=== PATIENT | female | born 1965 | race American Indian/Alaskan Native ===

== ENCOUNTER 2019-09-15 14:20 | Emergency (ER) | payer SELFPAY ==
[2019-09-15] MEDS ORDERED: ASPIRIN 325 MG TAB PO ONE (14:26)
--- NOTE | 2019-09-15 14:55 | XRay Report ---
CHEST 2 VIEWS INDICATION / CLINICAL INFORMATION: Chest Pain. COMPARISON: None available. FINDINGS: SUPPORT DEVICES: None. HEART / MEDIASTINUM: No significant abnormality. LUNGS / PLEURA: No significant pulmonary or pleural abnormality. No pneumothorax. ADDITIONAL FINDINGS: No significant additional findings. IMPRESSION: 1. No acute findings. Signer Name: Ousmane Burr MD Signed: 09/15/2019 2:51 PM Workstation Name: [id number]
--- NOTE | 2019-09-15 15:50 | Event Note ---
ED Screening Note ED Screening Note: pt presents with CP across the chest that began this morning states she has been diagnosed with costochrondritis no vomting, no diarrhea states she has a dry cough PMHx seizures, migraines, PTSD, depression, bipolar allergy: cortisporin ear drops went through menopause This initial assessment/diagnostic orders/clinical plan/treatment(s) is/are subject to change based on patients health status, clinical progression and re- assessment by fellow clinical providers in the ED. Further treatment and workup at subsequent clinical providers discretion. Patient/guardian urged not to elope from the ED as their condition may be serious if not clinically assessed and managed. Initial orders include: CP protocol
[2019-09-15 15:53] VITALS: BP 116/80
[2019-09-15 16:21] LABS: Basophils # (Auto) 0.1 K/mm3 (0.0-0.1); Basophils % (Auto) 0.7 % (0.0-1.8); Eosinophils # (Auto) 0.2 K/mm3 (0.0-0.4); Eosinophils % (Auto) 2.2 % (0.0-4.3); Hematocrit 41.1 % (30.3-42.9); Hemoglobin 13.5 gm/dl (10.1-14.3); Lymphocytes # (Auto) 3.7 K/mm3 (1.2-5.4); Lymphocytes % (Auto) 42.4 % (13.4-35.0); Mean Corpuscular HGB Conc 33 % (30-34); Mean Corpuscular Volume 83 fl (79-97); Monocytes # (Auto) 0.7 K/mm3 (0.0-0.8); Monocytes % (Auto) 7.7 % (0.0-7.3); Platelet Count 220 K/mm3 (140-440); Red Blood Count 4.95 M/mm3 (3.65-5.03); Red Cell Distribution Width 13.7 % (13.2-15.2)
[2019-09-15 16:40] LABS: BUN/Creatinine Ratio 20; Blood Urea Nitrogen 12 mg/dL (7-17); Calcium 9.7 mg/dL (8.4-10.2); Hemolysis Index 7
--- NOTE | 2019-09-15 17:54 | Emergency Department Report ---
ED Chest Pain HPI - General Chief Complaint: Chest Pain Stated Complaint: CHEST PAIN Time Seen by Provider: 09/15/19 15:47 Source: patient, family Mode of arrival: Ambulatory Limitations: No Limitations - History of Present Illness Initial Comments: This pleasant 54-year-old female presents to emergency department with a chief complaint of chest pain 1 day. Patient reports pain in the entire torso including her back. She denies any radiating pain. She reports past medical history of heart attack and stroke. Patient denies any associated fever, chills, night sweats, headache, does complain vision, nausea, vomiting, shortness of breath, exertional symptoms or any associated symptoms. Pain is a 4 of 10 and aggravated by movement. Alleviating factors include immobility. She denies any history of thromboembolic disease. MD Complaint: chest pain Severity scale (0 -10): 8 - Related Data Previous Rx's Medication Instructions Recorded Last Taken Type methOCARBAMOL [Robaxin TAB] 500 mg PO Q6H #20 tablet 09/15/19 Unknown Rx traMADoL [Ultram 50 MG tab] 50 mg PO Q6HR PRN #16 tablet 09/15/19 Unknown Rx Allergies Allergy/AdvReac Type Severity Reaction Status Date / Time No Known Allergies Allergy Verified 09/15/19 14:25 Heart Score - HEART Score History: Slightly suspicious EKG: Normal Age: 45-65 Risk factors: 1-2 risk factors Troponin: < normal limit HEART Score: 2 ED Review of Systems ROS: Stated complaint: CHEST PAIN Other details as noted in HPI Comment: All other systems reviewed and negative Constitutional: denies: chills, fever Eyes: denies: eye pain, eye discharge, vision change ENT: denies: ear pain, throat pain Respiratory: denies: cough, shortness of breath, wheezing Cardiovascular: denies: chest pain, palpitations Endocrine: no symptoms reported Gastrointestinal: abdominal pain, nausea, vomiting, diarrhea Genitourinary: denies: urgency, dysuria, discharge Musculoskeletal: denies: back pain, joint swelling, arthralgia Skin: denies: rash, lesions Neurological: denies: headache, weakness, paresthesias Psychiatric: denies: anxiety, depression Hematological/Lymphatic: denies: easy bleeding, easy bruising ED Past Medical Hx - Past Medical History Previous Medical History?: Yes Hx Heart Attack/AMI: Yes - Surgical History Past Surgical History?: No - Social History Smoking Status: Current Every Day Smoker Substance Use Type: None - Medications Home Medications: Home Medications Medication Instructions Recorded Confirmed Last Taken Type methOCARBAMOL [Robaxin TAB] 500 mg PO Q6H #20 tablet 09/15/19 Unknown Rx traMADoL [Ultram 50 MG tab] 50 mg PO Q6HR PRN #16 tablet 09/15/19 Unknown Rx ED Physical Exam - General Limitations: No Limitations General appearance: alert, in no apparent distress - Head Head exam: Present: atraumatic, normocephalic - Eye Eye exam: Present: normal appearance, PERRL, EOMI Pupils: Present: normal accommodation - ENT ENT exam: Present: normal exam, normal orophraynx, mucous membranes moist - Neck Neck exam: Present: normal inspection, full ROM. Absent: tenderness, meningismus - Respiratory Respiratory exam: Present: normal lung sounds bilaterally, chest wall tenderness (tenors to the anterior chest wall). Absent: respiratory distress, wheezes, rales, rhonchi, stridor - Cardiovascular Cardiovascular Exam: Present: regular rate, normal rhythm, normal heart sounds. Absent: systolic murmur, diastolic murmur, rubs, gallop - GI/Abdominal GI/Abdominal exam: Present: soft, normal bowel sounds. Absent: distended, te nderness, guarding, rebound, rigid - Extremities Exam Extremities exam: Present: normal inspection, full ROM. Absent: tenderness, calf tenderness (no posterior calf tenderness, negative Homans sign bilaterally.) - Back Exam Back exam: Present: normal inspection, full ROM. Absent: tenderness, CVA tenderness (R), CVA tenderness (L) - Neurological Exam Neurological exam: Present: alert, oriented X3, normal gait - Psychiatric Psychiatric exam: Present: normal affect, normal mood - Skin Skin exam: Present: warm, dry, intact, normal color. Absent: rash ED Course Vital Signs 09/15/19 15:48 Temperature 98.2 F Pulse Rate 75 Respiratory 18 Rate Blood Pressure 116/80 Blood Pressure 116/80 [Right] O2 Sat by Pulse 99 Oximetry SAM score - Sam Score Age > 65: (0) No Aspirin use within the Past 7 Days: (0) No 3 or more CAD Risk Factors: (0) No 2 or more Angina events in past 24 hrs: (0) No Known CAD with more than 50% Stenosis: (0) No Elevated Cardiac Markers: (0) No ST Deviation Greater than 0.5mm: (0) No SAM Score: 0 ED Medical Decision Making - Lab Data Result diagrams: 09/15/19 15:21 09/15/19 15:21 Lab Results 09/15/19 09/15/19 09/15/19 Range/Units 15:21 15:21 17:41 WBC 8.8 (4.5-11.0) K/mm3 RBC 4.95 (3.65-5.03) M/mm3 Hgb 13.5 (10.1-14.3) gm/dl Hct 41.1 (30.3-42.9) % MCV 83 (79-97) fl MCH 27 L (28-32) pg MCHC 33 (30-34) % RDW 13.7 (13.2-15.2) % Plt Count 220 (140-440) K/mm3 Lymph % (Auto) 42.4 H (13.4-35.0) % [place] % (Auto) 7.7 H (0.0-7.3) % Eos % (Auto) 2.2 (0.0-4.3) % Baso % (Auto) 0.7 (0.0-1.8) % Lymph # 3.7 (1.2-5.4) K/mm3 [place] # 0.7 (0.0-0.8) K/mm3 Eos # 0.2 (0.0-0.4) K/mm3 Baso # 0.1 (0.0-0.1) K/mm3 Seg Neutrophils % 47.0 (40.0-70.0) % Seg Neutrophils # 4.1 (1.8-7.7) K/mm3 Sodium 141 (137-145) mmol/L Potassium 4.2 (3.6-5.0) mmol/L Chloride 103.3 (98-107) mmol/L Carbon Dioxide 27 (22-30) mmol/L Anion Gap 15 mmol/L BUN 12 (7-17) mg/dL Creatinine 0.6 L (0.7-1.2) mg/dL Estimated GFR > 60 ml/min BUN/Creatinine Ratio 20 % Glucose 84 (65-100) mg/dL Calcium 9.7 (8.4-10.2) mg/dL Troponin T < 0.010 < 0.010 (0.00-0.029) ng/mL - EKG Data -: EKG Interpreted by Me EKG shows normal: sinus rhythm Rate: normal - EKG Data When compared to previous EKG there are: previous EKG unavailable 09/15/19 18:26 Normal sinus rhythm with a rate of 69. No acute ST or T-wave about this, no STEMI, normal intervals, normal axis, - Radiology Data Radiology results: report reviewed [address] [place] [id number] XRay Report Signed Patient: ENEDINA DANIELS MR#: [id number] : 1965 Acct:[id number] Age/Sex: 54 / F ADM Date: 09/15/19 Loc: ED Attending Dr: Ordering Physician: KATIE VALENTINE MD Date of Service: 09/15/19 Procedure(s): XR chest routine 2V Accession Number(s): [id number] cc: ED MD MEME Fluoro Time In Minutes: CHEST 2 VIEWS INDICATION / CLINICAL INFORMATION: Chest Pain. COMPARISON: None available. FINDINGS: SUPPORT DEVICES: None. HEART / MEDIASTINUM: No significant abnormality. LUNGS / PLEURA: No significant pulmonary or pleural abnormality. No p neumothorax. ADDITIONAL FINDINGS: No significant additional findings. IMPRESSION: 1. No acute findings. Signer Name: Ousmane Burr MD Signed: 09/15/2019 2:51 PM Workstation Name: [id number] Transcribed By: CRISTAL Dictated By: Ousmane Burr MD Electronically Authenticated By: Ousmane Burr MD Signed Date/Time: 09/15/19 145 DD/ 1450 TD/TT: - Medical Decision Making Patient is nontoxic in no acute distress. Vital signs have remained stable. Patient's EKG was unremarkable with no ischemic changes and 2 cardiac enzymes have been negative. Patient's heart scores relatively low making her a low risk for ACS. Patient has no exertional symptoms. Patient had no widening mediastinum and normal equal bilateral radial pulses making aortic dissection unlikely. She had no tearing or ripping pain to the back. Patient had no pleuritic pain, hemoptysis, recent long travel, recent immobilization or surgery, history of PE or DVT and has a low Wells criteria for PE and DVT making PE unlikely. I did discuss warning d-dimer the patient prior to discharge however she declined stating she had to go home to care for her children. She understood that a PE was not completely ruled out and that if she develops any change or worsening symptoms such as hemoptysis, pleuritic pain, shortness of breath that she needs to return emergently department immediately for proper rule out at this. The patient was also offered admission or observation the hospital and cardiology consultation however she politely declined stating she needed to go home to think is reasonable detour so far negative workup. X-ray was negative for pneumonia or pneumothorax. Patient was given strict return precautions. I will fax over the patient's information to the cardiology clinic for close follow-up and she was instructed to return emergently changing worsening symptoms. - Differential Diagnosis ACS, PE, aortic dissection, pneumonia, pneumothorax Critical care attestation.: If time is entered above; I have spent that time in minutes in the direct care of this critically ill patient, excluding procedure time. ED Disposition Clinical Impression: Nonspecific chest pain Disposition: DC-01 TO HOME OR SELFCARE Is pt being admited?: No Condition: Stable Instructions: Chest Pain (ED) Prescriptions: methOCARBAMOL [Robaxin TAB] 500 mg PO Q6H #20 tablet traMADoL [Ultram 50 MG tab] 50 mg PO Q6HR PRN #16 tablet PRN Reason: Pain Referrals: BERNADINE ROMAN MD [Staff Physician] - 3-5 Days Forms: Work/School Release Form(ED) Time of Disposition: 18:45
== END 2019-09-15 18:55 | disposition home or self-care (01) ==
LOC: ED 14:20
DX: R07.9 Chest pain, unspecified (principal); F17.200 Nicotine dependence, unspecified, uncomplicated; F12.10 Cannabis abuse, uncomplicated
CPT/HCPCS: 36415; 71046; 80048; 84484; 85025; 93005; 93010; 99284

== ENCOUNTER 2020-01-29 14:14 | Emergency (ER) | payer MEDICARE, MEDICAID ==
[2020-01-29] MEDS ORDERED: CYCLOBENZAPRINE 10 MG TAB PO ONE (17:07)
[2020-01-29] MEDS ORDERED: ACETAMINOPHEN W/CODEINE 300-30 MG TAB PO ONE (17:07)
[2020-01-29] MEDS ORDERED: KETOROLAC 60 MG/2 ML INJ IM ONE (17:07)
--- NOTE | 2020-01-29 17:08 | Emergency Department Report ---
ED Back Pain/Injury HPI - General Chief Complaint: Back Pain/Injury Stated Complaint: RIGHT LEG PAIN Time Seen by Provider: 01/29/20 16:50 Source: patient Limitations: No Limitations - History of Present Illness Initial Comments: 54-year-old female with a history of degenerative joint disease, as well as degenerative disc disease in her lumbar spine presents to the ER today comp laining of right low back pain. Patient states that her symptoms started gradually this past Wednesday. 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 She states that since the pain started on Wednesday has gradually gotten worse. She states that it radiates down into her right buttocks, right hip and down to her toes. Patient states that the pain is worse with movement, when she stands and when she ambulates. Seems to be slightly better when she remains still. 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 She denies any associated focal leg weakness, numbness tingling, bowel or bladder incontinence. She denies any associated UTI symptoms or abdominal pain. MD Complaint: back pain -: Gradual (2 days ago ) - Related Data Previous Rx's Medication Instructions Recorded Last Taken Type Acetaminophen/Codeine [Tylenol 1 tab PO Q6H PRN #12 tab 01/29/20 Unknown Rx /Codeine # 3 tab] Cyclobenzaprine [Flexeril] 10 mg PO TID PRN #30 tablet 01/29/20 Unknown Rx Ketorolac [Toradol] 10 mg PO Q6H PRN #20 tablet 01/29/20 Unknown Rx Allergies Allergy/AdvReac Type Severity Reaction Status Date / Time bacitracin [From Cortisporin] Allergy Swelling Verified 01/29/20 14:34 hydrocortisone Allergy Swelling Verified 01/29/20 14:34 [From Cortisporin] neomycin [From Cortisporin] Allergy Swelling Verified 01/29/20 14:34 polymyxin B Allergy Swelling Verified 01/29/20 14:34 [From Cortisporin] ED Review of Systems ROS: Stated complaint: RIGHT LEG PAIN Other details as noted in HPI Comment: All other systems reviewed and negative Constitutional: denies: chills, fever Respiratory: denies: cough, shortness of breath, wheezing Cardiovascular: denies: chest pain, palpitations Gastrointestinal: denies: abdominal pain, nausea, diarrhea Genitourinary: denies: urgency, dysuria, discharge Musculoskeletal: back pain, myalgia Skin: denies: rash, lesions Neurological: denies: headache, weakness, paresthesias ED Past Medical Hx - Past Medical History Previous Medical History?: Yes Hx Heart Attack/AMI: Yes Hx Headaches / Migraines: Yes (parapalegic) Hx Seizures: Yes - Surgical History Past Surgical History?: Yes Additional Surgical History: , foot surgery, hand surgery - Social History Smoking Status: Current Every Day Smoker Substance Use Type: Alcohol - Medications Home Medications: Home Medications Medication Instructions Recorded Confirmed Last Taken Type Acetaminophen/Codeine [Tylenol 1 tab PO Q6H PRN #12 tab 01/29/20 Unknown Rx /Codeine # 3 tab] Cyclobenzaprine [Flexeril] 10 mg PO TID PRN #30 tablet 01/29/20 Unknown Rx Ketorolac [Toradol] 10 mg PO Q6H PRN #20 tablet 01/29/20 Unknown Rx ED Physical Exam - General Limitations: No Limitations General appearance: alert, in distress (Moderate pain distress) - Head Head exam: Present: atraumatic, normocephalic, normal inspection - Eye Eye exam: Present: normal appearance - Neck Neck exam: Present: full ROM - Respiratory Respiratory exam: Present: normal lung sounds bilaterally. Absent: respiratory distress - Cardiovascular Cardiovascular Exam: Present: regular rate, normal rhythm. Absent: systolic murmur, diastolic murmur, rubs, gallop - GI/Abdominal GI/Abdominal exam: Present: soft. Absent: tenderness - Extremities Exam Extremities exam: Present: normal inspection, full ROM, normal capillary refill. Absent: pedal edema, calf tenderness - Back Exam Back exam: Present: normal inspection, muscle spasm (Along the right upper and mid lumbar area), paraspinal tenderness (along the right upper and mid lumbar spine), other (ROM moderately reduced due to pain). Absent: full ROM, CVA tenderness (R), vertebral tenderness, rash noted - Neurological Exam Neurological exam: Present: CN II-XII intact, abnormal gait (limping gait due to pain), other (sensation nl bilateral LE, strength 5/5 bilateral LE, no saddle anesthesia). Absent: alert, oriented X3, motor sensory deficit - Psychiatric Psychiatric exam: Present: normal affect, normal mood - Skin Skin exam: Present: intact ED Course Vital Signs 01/29/20 14:34 Temperature 97.8 F Pulse Rate 78 Respiratory 20 Rate Blood Pressure 133/83 O2 Sat by Pulse 100 Oximetry ED Medical Decision Making - Radiology Data Radiology results: report reviewed Referring Physician: ROBERT HOLM Patient Name: ENEDINA DANIELS Date of : 1965 Sex: Female Report Date: 2020-01-29 Report Status: [place] [address] XRay Report Signed Patient: ENEDINA DANIELS MR#: [id number] : 1965 Acct:[id number] Age/Sex: 54 / F ADM Date: 01/29/20 Loc: ED Attending Dr: Ordering Physician: ROBERT HOLM Date of Service: 01/29/20 Procedure(s): XR spine lumbosacral 2-3V Accession Number(s): [id number] cc: ROBERT HOLM Fluoro Time In Minutes: XR spine lumbosacral 2-3V INDICATION / CLINICAL INFORMATION: low back pain/sciatica. COMPARISON: None available. FINDINGS: BONES/JOINT(S): No acute fracture or subluxation. Grade 1 degenerative anterolisthesis of L4 and L5 due to bilateral facet DJD at L4-5. No significant disc height loss. No focal bone lesions. SOFT TISSUES: No significant abnormality. ADDITIONAL FINDINGS: None. Signer Name: Ousmane Burr MD Signed: 01/29/2020 6:02 PM Workstation Name: [id number] Transcribed By: CRISTAL Dictated By: Ousmane Burr MD Electronically Authenticated By: Ousmane Burr MD Signed Date/Time: 01/29/201801 DD/ 01 TD/TT: - Medical Decision Making Patient presents to the ER today complaining of right low back pain radiating down into her right leg. 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 She states that is been getting worse since it started. She denies any associated lower extremity numbness, tingling or lower extremity weakness. She has no bowel or bladder incontinence. No fever or chills. She does report a history of degenerative disease to the lower back and her right hip but she has not had any problems with it for about 9 years. Patient appears to be feeling better after pain medication given in the ER today. She does not appear to be in a severe distress that she was when she first got here. Patient is awake, alert, oriented x3 and she is neurologically intact. Exam no history today indicates any signs of cauda equina, epidural abscess, discitis, aortic dissection or aneurysm at this time. X-ray reviewed, shows degenerative changes to the lower lumbar spine but otherwise nothing acute. Discussed results, suspected diagnosis and treatment plan with patient. Patient does have a neurologist, recommend that she follows up with a neurologist and/or primary care doctor for referral to display specialist. Patient expresses understanding of results, discharge instructions and agrees with plan. Patient stable at time of discharge but she understands that if anything changes or worsens she needs to return to the ER. Critical care attestation.: If time is entered above; I have spent that time in minutes in the direct care of this critically ill patient, excluding procedure time. ED Disposition Clinical Impression: Lumbar radiculopathy, acute, Lumbar strain Disposition: TO HOME OR SELFCARE Is pt being admited?: No Does the pt Need Aspirin: No Condition: Stable Instructions: Lumbar Radiculopathy (ED), Low Back Strain (ED) Additional Instructions: Recommend that you take medications as prescribed. Recommend that you follow-up with your primary care doctor and display specialist for further evaluation and treatment if your back pain continues. If your symptoms worsen or changes in any way return to the ER. Prescriptions: Cyclobenzaprine [Flexeril] 10 mg PO TID PRN #30 tablet PRN Reason: Muscle Spasm Ketorolac [Toradol] 10 mg PO Q6H PRN #20 tablet PRN Reason: Pain Acetaminophen/Codeine [Tylenol /Codeine # 3 tab] 1 tab PO Q6H PRN #12 tab PRN Reason: Pain , Severe (7-10) Referrals: PRIMARY CARE, [Referring] - 3-5 Days Forms: Work/School Release Form(ED) Time of Disposition: 18:35
--- NOTE | 2020-01-29 18:06 | XRay Report ---
XR spine lumbosacral 2-3V INDICATION / CLINICAL INFORMATION: low back pain/sciatica. COMPARISON: None available. FINDINGS: BONES/JOINT(S): No acute fracture or subluxation. Grade 1 degenerative anterolisthesis of L4 and L5 d ue to bilateral facet DJD at L4-5. No significant disc height loss. No focal bone lesions. SOFT TISSUES: No significant abnormality. ADDITIONAL FINDINGS: None. Signer Name: Ousmane Burr MD Signed: 01/29/2020 6:02 PM Workstation Name: [id number]
[2020-01-30 13:28] VITALS: BP 133/83
== END 2020-01-29 18:45 | disposition home or self-care (01) ==
LOC: ED 14:14
DX: S39.012A Strain of muscle, fascia and tendon of lower back, initial encounter (principal); M54.16 Radiculopathy, lumbar region; I25.2 Old myocardial infarction; F17.200 Nicotine dependence, unspecified, uncomplicated; G43.909 Migraine, unspecified, not intractable, without status migrainosus; Z88.8 Allergy status to other drugs, medicaments and biological substances; Z79.899 Other long term (current) drug therapy; Z98.890 Other specified postprocedural states; Z86.69 Personal history of other diseases of the nervous system and sense organs; X58.XXXA Exposure to other specified factors, initial encounter; Y93.89 Activity, other specified; Y92.89 Other specified places as the place of occurrence of the external cause; Y99.8 Other external cause status
CPT/HCPCS: 72100; 96372; 99283; J1885

== ENCOUNTER 2021-12-09 13:19 | Emergency (ER) | payer MEDICARE ==
[2021-12-09 18:10] LABS: Mucus,Urine 1+ /HPF
[2021-12-09 18:24] LABS: Bilirubin,Urine Negative (Negative); Blood,Urine Negative (Negative); Color,Urine Colorless (Yellow)
[2021-12-09 18:25] LABS: Urobilinogen,Urine < 2.0 mg/dL (<2.0)
[2021-12-09] MEDS ORDERED: KETOROLAC 30 MG/1 ML INJ IM ONE (18:34)
[2021-12-09] MEDS ORDERED: ACETAMINOPHEN 500 MG TAB PO ONE (18:34)
--- NOTE | 2021-12-09 18:41 | Emergency Department Report ---
ED General Adult HPI - General Chief complaint: Pain General Stated complaint: LOWER BACK PAIN Time Seen by Provider: 12/09/21 18:20 Source: patient, RN notes reviewed Mode of arrival: Ambulatory Limitations: No Limitations - History of Present Illness Initial comments: During the history and physical examination, I am chaperoned by Diana Santiago The patient is a 56-year-old female with a history of fibromyalgia, tobacco use, who is not COVID-19 vaccinated, presenting to the ER today with a primary complaint of nontraumatic sacroiliac and left-sided reproducible paralumbar pain. The pain is sharp and throbbing, increases with palpation and range of motion. It decreases with rest. No other injuries or complaints. Denies dysuria, hematuria, bladder/bowel retention incontinence as well as saddle anesthesia. Took Tylenol at 6:00 this morning with minimal improvement in symptoms -: hour(s), This evening Location: buttocks, left, lower extremity Radiation: non-radiation Quality: aching Consistency: constant Improves with: rest Worsens with: movement Associated Symptoms: denies other symptoms - Related Data Previous Rx's Medication Instructions Recorded Last Taken Type Acetaminophen [Non-Aspirin Extra 650 mg PO Q6HR PRN #30 tablet 12/09/21 Unknown Rx Strength] Ibuprofen [Motrin] 600 mg PO Q8H PRN #30 tablet 12/09/21 Unknown Rx Allergies Allergy/AdvReac Type Severity Reaction Status Date / Time bacitracin [From Cortisporin] Allergy Swelling Verified 01/29/20 14:34 hydrocortisone Allergy Swelling Verified 01/29/20 14:34 [From Cortisporin] neomycin [From Cortisporin] Allergy Swelling Verified 01/29/20 14:34 polymyxin B Allergy Swelling Verified 01/29/20 14:34 [From Cortisporin] ED Review of Systems ROS: Stated complaint: LOWER BACK PAIN Other details as noted in HPI Comment: All other systems reviewed and negative Musculoskeletal: back pain, arthralgia, myalgia ED Past Medical Hx - Past Medical History Hx Heart Attack/AMI: Yes Hx Headaches / Migraines: Yes Hx Seizures: Yes - Surgical History Additional Surgical History: , foot surgery, hand surgery - Social History Smoking Status: Current Every Day Smoker Substance Use Type: Alcohol, Prescribed - Medications Home Medications: Home Medications Medication Instructions Recorded Confirmed Last Taken Type Acetaminophen [Non-Aspirin Extra 650 mg PO Q6HR PRN #30 tablet 12/09/21 Unknown Rx Strength] Ibuprofen [Motrin] 600 mg PO Q8H PRN #30 tablet 12/09/21 Unknown Rx ED Physical Exam - General Limitations: No Limitations General appearance: alert, in no apparent distress - Head Head exam: Present: atraumatic, normocephalic - Eye Eye exam: Present: normal appearance, EOMI. Absent: nystagmus - ENT ENT exam: Present: normal exam, normal orophraynx, mucous membranes moist, normal external ear exam - Neck Neck exam: Present: normal inspection, full ROM. Absent: tenderness, meningismus - Respiratory Respiratory exam: Present: normal lung sounds bilaterally. Absent: respiratory distress, wheezes, rales, rhonchi, stridor, decreased breath sounds - Cardiovascular Cardiovascular Exam: Present: regular rate, normal rhythm, normal heart sounds. Absent: bradycardia, tachycardia, irregular rhythm, systolic murmur, diastolic murmur, rubs, gallop - GI/Abdominal GI/Abdominal exam: Present: soft. Absent: distended, tenderness, guarding, rebound, rigid, pulsatile mass - Extremities Exam Extremities exam: Present: normal inspection, full ROM, other (2+ pulses noted in the bilateral upper and lower extremities. There is no palpable cord. negative Homans sign. Muscular compartments are soft. The pelvis is stable.). Absent: pedal edema, calf tenderness - Back Exam Back exam: Present: normal inspection, muscle spasm, paraspinal tenderness, other (There is reproducible left-sided paraspinal tenderness and sacroiliac tenderness). Absent: tenderness, CVA tenderness (R), CVA tenderness (L), vertebral tenderness - Neurological Exam Neurological exam: Present: alert, oriented X3, normal gait, reflexes normal, other (No facial droop. Tongue midline. Extraocular movements intact bilaterally. Facial sensation intact to light touch in V1, V2, V3 distribution bilaterally. 5 and a 5 strength in 4 extremities. Sensation intact to light touch in 4 extremities.). Absent: motor sensory deficit - Psychiatric Psychiatric exam: Present: normal affect, normal mood - Skin Skin exam: Present: warm, dry, intact, normal color. Absent: rash ED Course Vital Signs 12/09/21 12/09/21 13:39 18:58 Temperature 98.4 F Pulse Rate 64 Respiratory 16 Rate Blood Pressure 105/62 [Left] O2 Sat by Pulse 97 Oximetry ED Medical Decision Making - Lab Data Vital Signs 12/09/21 12/09/21 13:39 18:58 Temperature 98.4 F Pulse Rate 64 Respiratory 16 Rate Blood Pressure 105/62 [Left] O2 Sat by Pulse 97 Oximetry Lab Results 12/09/21 Range/Units Unknown Urine Color Colorless (Yellow) Urine Turbidity Clear (Clear) Urine pH 5.0 (5.0-7.0) Ur Specific [place] 1.010 (1.003-1.030) Urine Protein 30 mg/dl (Negative) mg/dL Urine Glucose (UA) Negative (Negative) mg/dL Urine Ketones Negative (Negative) mg/dL Urine Blood Negative (Negative) Urine Nitrite Negative (Negative) Ur Reducing Substances Not Reportable Urine Bilirubin Negative (Negative) Urine Ictotest Not Reportable Urine Urobilinogen < 2.0 (<2.0) mg/dL Ur Leukocyte Esterase Negative (Negative) Urine WBC (Auto) 2.0 (0.0-6.0) /HPF Urine RBC (Auto) 1.0 (0.0-6.0) /HPF U Epithel Cells (Auto) < 1.0 (0-13.0) /HPF Urine Mucus 1+ /HPF - Medical Decision Making Differential diagnosis, including but not limited to: Sprain, strain, fibromyalgia exacerbation, musculoskeletal back pain Assessment and plan: 56-year-old female, who is afebrile, with reassuring vital signs, with an unremarkable neurologic examination, no midline spinal tenderness, no IV drug use, with reproducible sacroiliac and paraspinal muscular pain. Tylenol, Motrin, rest, ice, compression, elevation, physical therapy, outpatient follow-up. No pulsatile abdominal mass. Urinalysis unremarkable. Patient educated as to the natural history of musculoskeletal pain Critical care attestation.: If time is entered above; I have spent that time in minutes in the direct care of this critically ill patient, excluding procedure time. ED Disposition Clinical Impression: Sacroiliac joint dysfunction of left side Disposition: 01 HOME / SELF CARE / HOMELESS Is pt being admited?: No Does the pt Need Aspirin: No Condition: Good Instructions: Abdominal Pain (ED), Acute Back Pain, Adult Additional Instructions: Pain likely coming from musculoskeletal joint pain in the sacroiliac joint/paraspinal muscles. Alternate ice packs and heat packs, use rest, ice, compression, elevation as needed for physical pain, take the prescribed pain medication as needed and directed, follow-up with an outpatient primary care doctor, or pain specialist. Patient may benefit from outpatient rehabilitation, physical therapy, massage, acupuncture, or complementary therapy. Recommend that patient discontinue tobacco consumption. Recommend that patient complete COVID-19 vaccination series. Please return to the emergency room right away with new pain, worsened pain, migration of pain, projectile vomiting, change in mental status, confusion, inability tolerate liquid feeds, new, worsened or different symptoms not present on the initial emergency room evaluation Follow-up with your primary care doctor within the next 2 weeks Referrals: [facility] [Provider Group] - 3-5 Days [facility]] - 3-5 Days
[2021-12-09 21:57] VITALS: BP 132/85
== END 2021-12-10 07:00 | disposition home or self-care (01) ==
LOC: ED 13:19
DX: M53.3 Sacrococcygeal disorders, not elsewhere classified (principal); I21.9 Acute myocardial infarction, unspecified; G43.909 Migraine, unspecified, not intractable, without status migrainosus; R56.9 Unspecified convulsions; F17.200 Nicotine dependence, unspecified, uncomplicated; Z88.6 Allergy status to analgesic agent; Z88.1 Allergy status to other antibiotic agents; Z91.09 Other allergy status, other than to drugs and biological substances
CPT/HCPCS: 81001; 96372; 99283; J1885